=== PATIENT | female | born 1980 | race Caucasian/White ===

== ENCOUNTER 2023-05-31 22:17 | Emergency (ER) | payer BC ==
[~2023-05-31] VITALS: Ht 157.5 cm; Wt 78.5 kg
--- NOTE | 2023-05-31 22:45 | NUR ---
Pt is noted alert, responsive as she came in C/O Sorethroat and pain x4days with Right Ear pain. Pt care continue as awaits MD orders.
--- NOTE | 2023-05-31 22:58 | NUR ---
Pt care continue as Lab for COVID19 and RAPID STRO sceen done as ordered.
[2023-06-01] MEDS ORDERED: METH4TAB21 GT (00:21)
--- NOTE | 2023-06-01 00:24 | NUR ---
Pt is noted off the unit , stable as she is been discharged to home with all discharged instructions given.
[2023-06-01 00:26] VITALS: BP 120/75; TEMP 97.8; O2SAT 98
== END 2023-06-01 00:26 | disposition home or self-care (01) ==
LOC: ER 22:17
DX: J02.9 Acute pharyngitis, unspecified (principal); H92.01 Otalgia, right ear; Z79.899 Other long term (current) drug therapy; Z20.822 Contact with and (suspected) exposure to COVID-19
CPT/HCPCS: 86403; A4663